=== PATIENT | female | born 2000 | race Caucasian/White ===

== ENCOUNTER 2020-09-21 02:31 | Inpatient (IN) | payer OTHER ==
[~2020-09-21] VITALS: Ht 157.5 cm; Wt 81.2 kg
[~2020-09-21 02:31] MED LIST: ZOFRAN4 MG PO
--- NOTE | 2020-09-21 03:03 | NUR ---
PT WAS SWABBED FOR COVID 19 FULL PPE DONNED
--- NOTE | 2020-09-21 07:43 | PR ---
[facility] [address] [facility] [place], [place] [address] Signed Progress Notes IP Datetime Report Generated by CPN: 09/21/2020 07:43 PROGRESS NOTES: [id number] Impression: Normal Progression of Labor; Reassuring Heart Rate Procedures: Artificial ROM; Sterile Vag Exam Plan: Continue Present Management; Anticipate Vaginal Delivery Informed Consent Obtain: Vaginal Delivery VITAL SIGNS: [id number] Vital Signs: Reviewed; Within Normal Limits EXAM: [id number] Dilatation: 7.0 Effacement: 90 Station: -1 Contractions: q 2 minutes MEMBRANES: [id number] ROM Note: Comments: Pt seen and examined. Some N/V, but comfortable w/ contractions w/ epidural. 2nd dose PCN per protocol administered. AROM performed. Will expectantly manage. FETUS A: [id number] FHR Baseline: 125 Variability: Moderate 6-25bpm Accelerations: 15X15 Decelerations: None FHR Category: Category I Presentation: Vertex Comments on Fetus A: No evidence of metabolic acidosis FETUS B: [id number] Signing Physician: Rolando Pittman DO Copies: ~ *Electronically Signed* 09/21/20 0743 ROLANDO PITTMAN DO PATIENT NAME: PENELOPE BARONE PROGRESS NOTE DATE OF : 00 PHYSICIAN: ROLANDO PITTMAN DO RPT #: [id number] REPORT IS CONFIDENTIAL AND NOT TO BE RELEASED WITHOUT AUTHORIZATION
--- NOTE | 2020-09-22 09:12 | PR ---
[facility] [address] [facility] [place], [place] [address] Signed PP Progress Notes Datetime Report Generated by CPN: 09/22/2020 09:12 SUBJECTIVE: [id number] Pain: Within Normal Limits Nausea/Vomiting: Denies Flatus: Yes Bowel Movement: No Vital Signs: [id number] Vital Signs: Reviewed; Within Normal Limits Cardiovascular: Normal Respiratory: Normal Abdomen/Uterus: Normal Lochia: Normal Vulva/Perineum: Not Done Breasts: Not Done CVA Tenderness: Normal Extremities: Normal Incision: Not Applicable Progress: Normal Exam Comments: Fundus firm U-2 nontender IMPRESSION/PLAN/PROCEDURES: [id number] Impression: Normal Progression Plan: Continue Present Management Progress Notes: Pt seen and examined. Doing well. Ambulating, voiding, and tolerating full diet. Pain and lochia minimal. well. Desires d/c home but GBS positive and required additional observation. Anticipate d/c home tomorrow. Planning nexplanon pp. Signing Physician: Rolando Pittman DO Copies: ~ *Electronically Signed* 09/22/20911 ROLANDO PITTMAN DO PATIENT NAME: PENELOPE BARONE PROGRESS NOTE DATE OF : 00 PHYSICIAN: ROLANDO PITTMAN DO RPT #: [id number] REPORT IS CONFIDENTIAL AND NOT TO BE RELEASED WITHOUT AUTHORIZATION
--- NOTE | 2020-09-23 06:57 | PR ---
[facility] [address] [place], [place] [address] Signed PP Progress Notes Datetime Report Generated by CPN: 09/23/2020 06:57 SUBJECTIVE: [id number] Pain: Within Normal Limits Nausea/Vomiting: Denies Flatus: Yes Bowel Movement: No Vital Signs: [id number] Vital Signs: Reviewed Cardiovascular: Normal Respiratory: Normal Abdomen/Uterus: Normal Lochia: Normal Vulva/Perineum: Not Done Breasts: Not Done CVA Tenderness: Normal Extremities: Normal Incision: Not Applicable Progress: Normal Exam Comments: NAD RRR No dyspnea Abd SNTND FFBU Extremities: trace BLLE edema IMPRESSION/PLAN/PROCEDURES: [id number] Impression: Normal Progression Plan: Continue Present Management; Discharge Progress Notes: PPD#2 s/p Rh negative: baby blood type B negative Hgb 11.9 PPD#1 Progressing well: ambulating, voiding, tolerating regular diet Desires Nexplanon for contraception well Lochia light Signing Physician: Schuyler Matamoros DO Copies: *Electronically Signed* 09/23/20 0657 SCHUYLER MATAMOROS DO PATIENT NAME: PENELOPE BARONE PROGRESS NOTE DATE OF : 00 PHYSICIAN: SCHUYLER MATAMOROS DO RPT #: [id number] REPORT IS CONFIDENTIAL AND NOT TO BE RELEASED WITHOUT AUTHORIZATION [address] [address] Signed ~ *Electronically Signed* 09/23/20 0657 SCHUYLER MATAMOROS DO PATIENT NAME: PENELOPE BARONE PROGRESS NOTE DATE OF : 00 PHYSICIAN: SCHUYLER MATAMOROS DO RPT #: [id number] REPORT IS CONFIDENTIAL AND NOT TO BE RELEASED WITHOUT AUTHORIZATION
== END 2020-09-23 09:05 | disposition home or self-care (01) | DRG 806 ==
LOC: FBCO 02:31 → FBC 02:44
PROVIDERS: ADMIT Obstetrics & Gynecology; ATTEND Obstetrics & Gynecology
PROC: 10E0XZZ Delivery of Products of Conception, External Approach (ICD-10-PCS; principal; 2020-09-21)
PROC: 10907ZC Drainage of Amniotic Fluid, Therapeutic from Products of Conception, Via Natural or Artificial Opening (ICD-10-PCS; 2020-09-21)
PROC: 00HU33Z Insertion of Infusion Device into Spinal Canal, Percutaneous Approach (ICD-10-PCS; 2020-09-21)
PROC: 3E0R3BZ Introduction of Anesthetic Agent into Spinal Canal, Percutaneous Approach (ICD-10-PCS; 2020-09-21)
DX: O60.14X0 Preterm labor third trimester with preterm delivery third trimester, not applicable or unspecified (principal); O99.324 Drug use complicating childbirth; Z37.0 Single live birth; O99.824 Streptococcus B carrier state complicating childbirth; Z20.822 Contact with and (suspected) exposure to COVID-19; Z3A.36 36 weeks gestation of pregnancy; O99.344 Other mental disorders complicating childbirth; F41.9 Anxiety disorder, unspecified; Z87.891 Personal history of nicotine dependence; F12.90 Cannabis use, unspecified, uncomplicated
CPT/HCPCS: 36415; 85027; A9270; C9803; J2405; J2540; J2550; J2795; J3010; J7121; U0003